=== PATIENT | female | born 1960 | race Caucasian/White ===

== ENCOUNTER 2017-04-10 08:11 | Emergency (ER) | payer OTHER ==
[~2017-04-10] VITALS: Ht 162.6 cm; Wt 79.3 kg
[~2017-04-10 08:11] MED LIST: AMITRIPTYLINE H10 MG PO; Aspirin E.C. PO; IBUPROFEN800 MG PO; IMITREX100 MG PO; KEPPRA1000 MG PO; LEXAPRO20 MG PO; MACROBID100 MG PO; MIRALAX255 GM PO; NAPROXEN500 MG PO; TOPAMAX100 MG PO
[2017-04-10 09:25] LABS: HEMATOCRIT 42.5 % (36.0-46.0); HEMOGLOBIN 14.4 G/DL (11.9-15.5); MCH 30.2 PG (29.0-34.0); MCHC 33.9 G/DL (30.0-36.0); MCV 89.1 FL (83-99); PLATELET COUNT 149 K/uL (156-360); RBC DIS.WIDTH-CV 13.2 % (11.8-14.6); RBC DIS.WIDTH-SD 43.1 % (39-53); RED BLOOD COUNT 4.77 M/uL (3.80-5.20); WHITE BLOOD COUNT 4.7 K/uL (4.1-10.2)
[2017-04-10 09:50] LABS: CHLORIDE 111 MEQ/L (99-109); SODIUM 139 MEQ/L (136-147)
[2017-04-10 09:55] LABS: CREATININE 1.2 MG/DL (0.6-1.3); GFR ESTIMATE (CALCULATED) 50 mL/min/; GLUCOSE 144 mg/dL (70-99); UREA NITROGEN (BUN) 19 mg/dL (9-23)
[2017-04-10 10:59] VITALS: BP 118/73
== END 2017-04-10 10:59 | disposition home or self-care (01) ==
LOC: EME 08:11
PROVIDERS: Emergency Medicine
DX: R56.9 Unspecified convulsions (principal); G43.909 Migraine, unspecified, not intractable, without status migrainosus; Z91.14 Patient's other noncompliance with medication regimen; Z87.442 Personal history of urinary calculi; Z98.51 Tubal ligation status; Z90.49 Acquired absence of other specified parts of digestive tract; Z88.5 Allergy status to narcotic agent; Z88.2 Allergy status to sulfonamides; Z88.0 Allergy status to penicillin
CPT/HCPCS: 70450; 70480; 80048; 85027; 99281; 99285